=== PATIENT | male | born 2000 | race American Indian/Alaskan Native ===

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

== ENCOUNTER 2019-05-29 10:25 | Emergency (ER) | payer SELFPAY ==
[2019-05-29 10:39] VITALS: BP 145/73
--- NOTE | 2019-05-29 10:58 | Emergency Department Report ---
Minor Respiratory - HPI Chief Complaint: Sore Throat Stated Complaint: TONSIL SWELLING/PAIN Time Seen by Provider: 05/29/19 10:56 Duration: 1 week Minor Respiratory: Yes Sore Throat, Yes Able to Tolerate Fluids, Yes Cough (slight), No Rhinorrhea, No Ear Pain, No Sick Contacts, No Hemoptysis, No Chest Pain, No Shortness of Breath, No Fever Other History: sore throat x 1 week ED Review of Systems ROS: Stated complaint: TONSIL SWELLING/PAIN Other details as noted in HPI Comment: All other systems reviewed and negative ENT: as per HPI ED Past Medical Hx - Social History Smoking Status: Current Every Day Smoker Substance Use Type: None - Medications Home Medications: Home Medications Medication Instructions Recorded Confirmed Last Taken Type Amoxicillin 1,000 mg PO BID #40 capsule 02/16/17 Unknown Rx Doxycycline Monohydrate 100 mg PO BID 5 Days #10 tablet 10/28/17 Unknown Rx Amoxicillin [Amoxicillin TAB] 875 mg PO BID #20 tablet 11/28/17 Unknown Rx predniSONE [Deltasone] 20 mg PO BID #10 tablet 11/28/17 Unknown Rx Cetirizine HCl [ZyrTEC] 10 mg PO QDAY #30 capsule 04/08/18 Unknown Rx Ibuprofen 600 mg PO TID PRN #25 tablet 04/08/18 Unknown Rx Amoxicillin [Trimox CAP] 500 mg PO Q8H #15 capsule 05/29/19 Unknown Rx predniSONE [Deltasone] 40 mg PO QDAY #10 tab 05/29/19 Unknown Rx Minor Respiratory Exam - Exam General: Vital signs noted. No distress. Alert and acting appropriately. HEENT: Yes Pharyngeal Erythema (tonsils 3+, uvula midline), Yes Moist Mucous Membranes, No Pharyngeal Exudates, No Rhinorrhea, No Conjuctival Injection, No Frontal Tenderness, No Maxillary Tenderness Neck: Yes Adenopathy, Yes Supple Lungs: Yes Good Air Exchange, No Wheezes, No Ronchi, No Stridor, No Cough, No Labored Respirations, No Retractions, No Use of Accessory Muscles, No Other Abnormal Lung Sounds Heart: Yes Regular, No Murmur Abdomen: Yes Normal Bowel Sounds, No Tenderness, No Peritoneal Signs Skin: No Rash, No Edema Neurologic: Alert and oriented, no deficits. Musculoskeletal: Unremarkable. ED Course Vital Signs 05/29/19 10:37 Temperature 98.7 F Pulse Rate 64 Respiratory 18 Rate Blood Pressure 145/73 O2 Sat by Pulse 100 Oximetry ED Medical Decision Making - Medical Decision Making sore throat, tonsillitis on exam reported hx recurrent strep strep is neg today but pain ongoing will culture and treat - Differential Diagnosis strep, viral pharyngitis Critical care attestation.: If time is entered above; I have spent that time in minutes in the direct care of this critically ill patient, excluding procedure time. ED Disposition Clinical Impression: Acute tonsillitis Qualifiers: Pharyngitis/tonsillitis etiology: unspecified etiology Qualified Code(s): J03.90 - Acute tonsillitis, unspecified Disposition: DC- TO HOME OR SELFCARE Is pt being admited?: No Condition: Good Instructions: Tonsillitis (ED) Prescriptions: predniSONE [Deltasone] 40 mg PO QDAY #10 tab Amoxicillin [Trimox CAP] 500 mg PO Q8H #15 capsule Referrals: CHAN NOE MD [Staff Physician] - 3-5 Days Time of Disposition: 11:27
[2019-05-29] MEDS ORDERED: IBUPROFEN ORAL LIQD 100 MG/5 ML ORAL.LIQD PO ONE (12:30)
[2019-05-29] MEDS ORDERED: IBUPROFEN ORAL LIQD 100 MG/5 ML ORAL.LIQD ONE (12:35)
== END 2019-05-29 12:41 | disposition home or self-care (01) ==
LOC: ED 10:25
DX: J03.90 Acute tonsillitis, unspecified (principal)
CPT/HCPCS: 87116; 87430

== ENCOUNTER 2019-11-24 22:21 | Emergency (ER) | payer SELFPAY ==
[2019-11-24 22:44] VITALS: BP 123/81
[2019-11-24 23:34] LABS: Bacteria,Urine 1+ /HPF (Negative); Bilirubin,Urine NEG (Negative); Blood,Urine SM (Negative); Color,Urine Yellow (Yellow)
[2019-11-24 23:41] LABS: WBC,Urine > 182.0 /HPF (0.0-6.0)
== END 2019-11-25 01:50 | disposition left against medical advice (07) ==
LOC: ED 22:21
DX: R30.9 Painful micturition, unspecified (principal); Z53.21 Procedure and treatment not carried out due to patient leaving prior to being seen by health care provider
CPT/HCPCS: 81001

== ENCOUNTER 2019-11-25 18:03 | Emergency (ER) | payer SELFPAY ==
--- NOTE | 2019-11-25 19:10 | Emergency Department Report ---
Chief Complaint: Urogenital-Male Stated Complaint: URETHRITIS Time Seen by Provider: 11/25/19 18:34 - HPI History of Present Illness: Patient is a 19-year-old male presents emergency room with complaints of dysuria and penile discharge that began 3 days ago. He denies any abdominal pain, back pain, testicular edema or pain, vomiting, chills, fever. He states he is sexually active. He denies ever having this in the past. He denies any past medical history or allergies to medications. Initial vitals with mild tachycardia which improved to normal upon repeat Patient is presenting with urinary symptoms and discharge from most likely secondary to STD Patient is not having any testicular swelling or pain, no abdominal pain, no fever, no vomiting Patient will be referred to the health department and clinics for a full STD panel and to receive treatment as appropriate Discussed in detail strict return precautions with patient Medical screening examination performed and there is no threat to life or limb at this time MSE screening note: Focused history and physical exam performed. ED Disposition for MSE Clinical Impression: Concern about STD in male without diagnosis, Penile discharge, Dysuria Disposition: MED SCREENING EXAM-LEFT Is pt being admited?: No Does the pt Need Aspirin: No Condition: Stable Instructions: Sexually Transmitted Diseases (ED), Safe Sex (ED) Additional Instructions: Please go to the health department for a full STD panel and treatment. Please have your partner tested and treated as well. Please avoid sexual intercourse. Return to the emergency room for any new or worsening symptoms. Referrals: [facility] [Outside] - 3-5 Days DEANGELO ZHANG MD [Staff Physician] - 3-5 Days [facility] [place] [facility] [place]] - 3-5 Days [facility] [place] [Outside] - 3-5 Days [facility] [Provider Group] - 3-5 Days Time of Disposition: 19:09 Print Language: ICELANDIC
[2019-11-25 19:32] VITALS: BP 147/92
== END 2019-11-25 19:15 | disposition left against medical advice (07) ==
LOC: ED 18:03
DX: R36.9 Urethral discharge, unspecified (principal); R30.0 Dysuria; Z20.2 Contact with and (suspected) exposure to infections with a predominantly sexual mode of transmission
CPT/HCPCS: 99282